=== PATIENT | female | born 1985 | race Caucasian/White ===

== ENCOUNTER 2017-10-10 16:53 | Emergency (ER) | payer OTHER ==
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
[2017-10-10] MEDS ORDERED: Acetaminophen TAB* 325 MG ONE (20:49)
[2017-10-10] MEDS ORDERED: Acetaminophen TAB* 325 MG PO ONE (20:50)
[2017-10-10 20:56] VITALS: BP 132/76
== END 2017-10-10 20:55 | disposition home or self-care (01) ==
LOC: ED 16:53
DX: O26.891 Other specified pregnancy related conditions, first trimester (principal); O21.0 Mild hyperemesis gravidarum; Z3A.11 11 weeks gestation of pregnancy; M54.5 Low back pain; V43.52XA Car driver injured in collision with other type car in traffic accident, initial encounter; Y92.9 Unspecified place or not applicable
CPT/HCPCS: 99282; A9270-GY

== ENCOUNTER 2023-09-26 12:09 | Inpatient (IN) ==
[2023-09-26] MEDS ORDERED: Lidocaine 1% VIAL 10 MG/ML 30 ML VIAL INJ PRN (12:52)
[2023-09-26] MEDS: Lactated Ringers 1000 ml BAG 1,000 ML IV ONE ×2 (12:57→15:15)
[2023-09-26] MEDS ORDERED: Ondansetron 4 mg VIAL 2 MG/ML 2 ml VIAL IV PRN (13:10)
[2023-09-26] MEDS: Lactated Ringers 1000 ml BAG 1,000 ML IV SCH (13:25)
[2023-09-26 13:58] LABS: ABS Lymphocytes 1.2 10^3/uL (1.0-4.8); ABS Monocytes 0.6 10^3/uL (0.0-0.9); ABS Neutrophils 11.5 10^3/uL (1.5-7.6); ABS Nucleated RBC 0.01 10^3/ul; Eosinophil % 0.2 %; Hematocrit 36.8 % (35-45); Hemoglobin 12.3 g/dL (11.5-14.3); Lymphocyte % 9.2 %; Mean Corpuscular Hemoglobin 27.7 pg (27-33); Mean Corpuscular Hgb Conc 33.6 g/dL (31-36); Mean Corpuscular Volume 82.5 fL (80-97); Mean Platelet Volume 9.6 fL (7.5-11.2); Nucleated Red Blood Cells % 0.1 %/100WBC (0.0-0.8); Platelet Count 186 10^3/uL (150-450); Red Blood Count 4.46 10^6/uL (3.63-4.92); Red Cell Distribution Width 14.8 % (12-17); White Blood Count 13.3 10^3/uL (3.8-11.8)
[2023-09-26 13:58] LABS: Albumin 3.9 g/dL (3.2-5.2); Albumin/Globulin Ratio 1.7 (1-3); Calcium 9.1 mg/dL (8.6-10.3); Creatinine, Serum 0.68 mg/dL (0.51-0.95); Globulin 2.3 g/dL (2-4); Potassium 4.1 mmol/L (3.5-5.0); Total Bilirubin 0.4 mg/dL (0.2-1.0); Total Protein 6.2 g/dL (6.4-8.9)
[2023-09-26] MEDS: OBEPIDURAL (200 ML) 200 ML EPIDURAL ONE (15:00)
[2023-09-26] MEDS: Phenylephrine 40 mcg/mL 10mL (400mcg) SYRINGE IV PUSH PRN ×2 (15:07→15:11)
[2023-09-26 16:25] LABS: Urine Appearance Turbid; Urine Bilirubin Negative (Negative); Urine Blood 2+ (Negative); Urine Color Light-Yellow; Urine Glucose Negative (Negative); Urine Ketones 1+ (Negative); Urine Nitrite Negative (Negative); Urine Protein Trace (Negative); Urine Specific Gravity 1.019 (1.002-1.030); Urine Urobilinogen Negative (Negative); Urine pH 7.5 (5.0-8.0)
[2023-09-26 16:26] LABS: Urine Bacteria 1+ /HPF (Absent); Urine Red Blood Cell 3+(>10/hpf) /HPF (0-Trace); Urine Squamous Epithelial Cell Present /HPF (Absent); Urine White Blood Cell 1+(6-10/hpf) /HPF (0-Trace)
[2023-09-26 16:47] LABS: Urine Benzodiazepine Screen None Detected (None Detect); Urine Cannabinoids Screen None Detected (None Detect); Urine Opiates Screen None Detected (None Detect)
[2023-09-26] MEDS: Oxytocin in LR 20,000 MILLI.UNIT/1,000 ML BAG IV SCH (17:47)
[2023-09-27] MEDS: ceFOXitin 2 GM IVPREMIX 2 GM/50 ML BAG IVPB ONE (00:18)
[2023-09-27] MEDS: Sodium Citrate/Citric Acid LIQ 15 ML UDC PO PRN (00:18)
[2023-09-27] MEDS ORDERED: Morphine PF AMP (0.5MG/ML) 5 MG/10 ML AMP ONE (00:21)
[2023-09-27] MEDS ORDERED: Oxytocin 10 UNITS/ML 1 ML VIAL ONE (00:22)
[2023-09-27] MEDS ORDERED: Phenylephrine IV 10 MG/ML 1 ml VIAL ONE (00:22)
[2023-09-27] MEDS ORDERED: Succinylcholine 200 mg VIAL 20 mg/ml 10 ml VIAL (200 mg) ONE (00:22)
[2023-09-27] MEDS ORDERED: Propofol 10 MG/ML 20 ML BTL ONE (00:22)
[2023-09-27] MEDS ORDERED: Ondansetron 4 mg VIAL 2 MG/ML 2 ml VIAL ONE (00:22)
[2023-09-27] MEDS ORDERED: Bupivacaine-MPF SPINAL 7.5 MG/ML - 2ML AMP ONE (00:23)
[2023-09-27] MEDS ORDERED: fentaNYL 100 mcg/2 ml 50 MCG/ML VIAL ONE ×2 (00:51→01:23)
[2023-09-27] MEDS ORDERED: Naloxone 0.4 mg VIAL 0.4 mg/ml 1 ml VIAL IV PUSH PRN (01:30)
[2023-09-27] MEDS ORDERED: Ondansetron 4 mg VIAL 2 MG/ML 2 ml VIAL IV PRN (01:30)
[2023-09-27] MEDS ORDERED: Metoclopramide 5 MG/ML VIAL (10 mg) IV PRN (01:30)
[2023-09-27] MEDS ORDERED: ROPIVACAINE 5 MG/ML 30 ML BTL (0.5%) ONE (01:42)
[2023-09-27] MEDS ORDERED: Witch Hazel PAD JAR TOPICAL PRN (02:06)
[2023-09-27] MEDS ORDERED: Glycerin ADULT 2.4 gm SUPP PR PRN (02:06)
[2023-09-27] MEDS ORDERED: Dibucaine 1% OINT 28.35 GM TUBE PR PRN (02:06)
[2023-09-27] MEDS: Acetaminophen IV 1 GM/100ML 1,000 MG/100 ML BAG IV PRN (02:12)
[2023-09-27] MEDS ORDERED: Lactated Ringers 1000 ml BAG 1,000 ML IV SCH (03:00)
[2023-09-27] MEDS: Oxytocin in LR 20,000 MILLI.UNIT/1,000 ML BAG IV SCH (04:23)
[2023-09-27] MEDS: OBEPIDURAL (200 ML) 200 ML EPIDURAL SCH (20:43)
[2023-09-27] MEDS: Lactated Ringers 1000 ml BAG 1,000 ML IV SCH (20:43)
[2023-09-27] MEDS: Buffered Lidocaine 1% SYRIN 1 ml INTRADERM ONE (20:43)
[2023-09-27] MEDS: Lidocaine 1.5% EPI 1:200,000 30 ML SDV ONE ×2 (20:45)
[2023-09-28 06:59] LABS: ABS Lymphocytes 1.5 10^3/uL (1.0-4.8); ABS Monocytes 0.8 10^3/uL (0.0-0.9); ABS Neutrophils 11.7 10^3/uL (1.5-7.6); Eosinophil % 0.2 %; Hematocrit 28.8 % (35-45); Hemoglobin 9.9 g/dL (11.5-14.3); Lymphocyte % 10.9 %; Mean Corpuscular Hemoglobin 28.9 pg (27-33); Mean Corpuscular Hgb Conc 34.6 g/dL (31-36); Mean Corpuscular Volume 83.7 fL (80-97); Platelet Count 171 10^3/uL (150-450); Red Blood Count 3.44 10^6/uL (3.63-4.92); Red Cell Distribution Width 14.6 % (12-17); White Blood Count 14.1 10^3/uL (3.8-11.8)
[2023-09-29 08:12] VITALS: BP 119/74
== END 2023-09-29 12:39 | disposition home or self-care (01) | DRG 540 ==
LOC: MCHOBOUT 12:09 → MCHOB 12:38
PROVIDERS: ADMIT Advanced Practice Midwife; ATTEND Advanced Practice Midwife